=== PATIENT | female | born 1990 | race Caucasian/White ===

== ENCOUNTER 2018-10-27 11:14 | Observation (INO) | payer OTHER ==
[2018-10-27 11:52] LABS: Appearance,Urine Clear (Clear); Bilirubin,Urine Negative (Negative); Blood,Urine Negative (Negative); Color,Urine Light Yellow; Glucose,Urine (UA) Negative (Negative); Ketones,Urine Negative (Negative); Leukocyte Esterase,Urine Negative (Negative); Nitrite,Urine Negative (Negative); Protein,Urine Negative (Negative); Specific Gravity,Urine 1.006 (1.001-1.035); Urobilinogen,Urine <2.0 mg/dL (<2.0)
[2018-10-27 11:56] LABS: Basophils % (A) 0 %; Eosinophils # (A) 0.1 k/uL (0-0.7); Eosinophils % (A) 0 %; HGB 12.8 gm/dL (11.4-16.0); Lymphocytes # (A) 1.8 k/uL (1.0-4.8); Lymphocytes % (A) 16 %; MCH 29.9 pg (25.0-35.0); MCHC 34.5 g/dL (31.0-37.0); MCV 86.9 fL (80.0-100.0); Mean Platelet Volume 8.2; Monocytes # (A) 0.5 k/uL (0-1.0); Monocytes % (A) 4 %; Neutrophils # (A) 8.5 k/uL (1.3-7.7); Neutrophils % (A) 76 %; Platelet Count 160 k/uL (150-450); RBC 4.26 m/uL (3.80-5.40); RDW 13.5 % (11.5-15.5); WBC 11.2 k/uL (3.8-10.6)
[2018-10-27 12:09] LABS: ALT 39 U/L (9-52); AST 43 U/L (14-36); Blood Urea Nitrogen 6 mg/dL (7-17); LDH 594 U/L (313-618); Uric Acid 5.5 mg/dL (3.7-7.4)
--- NOTE | 2018-10-27 12:27 | US ---
EXAMINATION TYPE: US OB BPP wo non-stress DATE OF EXAM: 10/27/2018 COMPARISON: NONE CLINICAL HISTORY: PIH. HTN, weight gain EXAM PERFORMED: Transabdominal (TA) BPP PARAMETERS: PRESENTATION: Vertex LIE: Longitudinal?? HEART RATE: 136 bpm RHYTHM: Normal LATRICE: 13.6cm DIAPHRAGM IMAGED: yes BPP SCORIN. Breathin (1 episode of breathing of 30 second duration in 30 minutes of scanning time) 2. Movement: 2 (at least 3 discrete body movements in 30 minutes) 3. Tone: 2 (1 episode of active flexion/extension of limb) 4. LATRICE: 2 (LATRICE index > 5cm) TOTAL SCORE: 8 / 8 Biophysical profile scored normal range during real-time scanning.
[2018-10-27 15:47] VITALS: BMI 36.5
--- NOTE | 2018-10-27 16:40 | P.HPOB ---
History of Present Illness H&P Date: 10/27/18 Chief Complaint: Intrauterine 35 weeks: Elevated blood pressures Selene is a 28-year-old G3 1 P0 at 35 weeks gestation who was seen in the office and was noted to have elevated blood pressure. Her blood pressure initially in the office was 146/86 so she was sent to labor and delivery for evaluation. It is noted in labor and delivery she's had a number of mildly elevated blood pressures anywhere from 150/80-140/70 however, at this time her blood pressures are 130s over 70s. She has no headache no epigastric pain and no visual changes however. She does have some peripheral and central edema approximately +1 she does feel slightly more bloated then she had. Lab studies were ordered and she is noted to have normal platelet count, however her AST is minimally elevated at 43 and her LDH is high normal at 593. I am concerned that she may have early signs of preeclampsia and as such we are going to keep her tonight and run a 24-hour urine for protein and repeat her blood work tomorrow to verify stability and/or hopefully decrease of her liver enzyme and LDH. As she is only 30 weeks and this appears at this time to be mild preeclampsia there is no specific recommendation for delivery, however very close observation and follow-up will be required if she is able to go home. At this time all questions answered for her and we did have a lengthy discussion on risks of preeclampsia and our concerns especially as it relates to timing of delivery as she is only 35 weeks. Physical exam: Vital signs are currently stable and she is afebrile. Heart regular, lungs clear, extremities are without pain but do show +1 edema and +2/ 3 out of 4 deep tendon reflexes without clonus. heart tones show a category 1 tracing with heart rate in the 140s. Assessment gestational hypertension versus early preeclampsia Plan very close observation with serial blood pressures and repeat of labs tomorrow. We'll also continue with neuro checks and make decisions for further care based on tomorrow's labs and how she feels tonight and whether or not there is any change to her symptomatology. Past Medical History Past Medical History: No Reported History History of Any Multi-Drug Resistant Organisms: None Reported Past Surgical History: No Surgical Hx Reported Past Anesthesia/Blood Transfusion Reactions: No Reported Reaction Past Psychological History: No Psychological Hx Reported Smoking Status: Never smoker Past Alcohol Use History: None Reported Past Drug Use History: None Reported - Past Family History Father Family Medical History: No Reported History Medications and Allergies Allergies Allergy/AdvReac Type Severity Reaction Status Date / Time No Known Allergies Allergy Verified 10/27/18 11:20 Exam Osteopathic Statement: *. No significant issues noted on an osteopathic structural exam other than those noted in the History and Physical/Consult. Vital Signs Resp BP 10/27/18 15:41 14 153/79 Intake and Output 10/27/18 10/27/18 10/27/18 06:59 14:59 22:59 Other: Weight 93.44 kg 93.44 kg Results Result Diagrams: 10/27/18 11:37 10/27/18 11:37 Abnormal Lab Results - Last 24 Hours (Table) 10/27/18 10/27/18 10/27/18 Range/Units 11:35 11:37 11:37 WBC 11.2 H (3.8-10.6) k/uL Neutrophils # 8.5 H (1.3-7.7) k/uL BUN 6 L (7-17) mg/dL Creatinine 0.49 L (0.52-1.04) mg/dL AST 43 H (14-36) U/L U Random Total Protein 25 H (<12) mg/dL
[2018-10-28 08:45] VITALS: RESP 14
--- NOTE | 2018-10-28 09:54 | P.PN ---
Progress Note - Text Progress Note Date: 10/28/18 Selene is seen and evaluated. At this time she voices no complaints. Her vital signs remain with mildly elevated blood pressures in the 140/70-80 range, however she has no signs or symptoms of severe preeclampsia. She denies headache, no epigastric pain, and no visual changes. Her peripheral edema today appears less. She is voiding without difficulty she relates. A 24-hour urine is pending. Deep tendon reflexes remaining normal to very slightly brisk but there is no clonus. Heart regular, lungs clear, extremities without pain with minimal edema this morning. Assessment intrauterine with suspected mild/early preeclampsia Plan continue observational care at this time with 24 urine pending. Also we will await repeat lab studies. Should her repeat labs show an abnormal increase she will likely need to be delivered in the near future. Should they be stable or decreased will likely discharge her to home with appointment on Saturday for blood pressure check and NST. All this was discussed with patient in detail and all questions are answered for her at this time.
[2018-10-28 12:31] LABS: Basophils % (A) 0 %; Eosinophils # (A) 0.1 k/uL (0-0.7); Eosinophils % (A) 1 %; HCT 37.5 % (34.0-46.0); HGB 12.8 gm/dL (11.4-16.0); Lymphocytes # (A) 1.5 k/uL (1.0-4.8); Lymphocytes % (A) 16 %; MCH 29.9 pg (25.0-35.0); MCV 87.7 fL (80.0-100.0); Mean Platelet Volume 8.2; Monocytes # (A) 0.3 k/uL (0-1.0); Monocytes % (A) 4 %; Neutrophils # (A) 7.4 k/uL (1.3-7.7); Neutrophils % (A) 78 %; Platelet Count 164 k/uL (150-450); RBC 4.28 m/uL (3.80-5.40); RDW 13.7 % (11.5-15.5); WBC 9.5 k/uL (3.8-10.6)
[2018-10-28 12:42] VITALS: TEMP 97.3
[2018-10-28 12:50] LABS: ALT 42 U/L (9-52); AST 40 U/L (14-36); Blood Urea Nitrogen 6 mg/dL (7-17); LDH 569 U/L (313-618); Uric Acid 5.9 mg/dL (3.7-7.4)
[2018-10-28 16:42] VITALS: BP 140/78; PULSE 77
--- NOTE | 2018-10-28 18:45 | P.DS ---
Providers Date of admission: 10/27/18 15:06 Expected date of discharge: 10/28/18 Attending physician: Balwinder Garrido Primary care physician: Stated None - Discharge Diagnosis(es) (1) Mild pre-eclampsia Current Visit: Yes Status: Acute Hospital Course: Patient presented with increased blood pressures yesterday. She denies headache , nausea, vomiting, chest pain, shortness of breath or calf pain or right upper quadrant pain. Her blood pressures ranged from 126-156/69-83. She was kept for 24 urine protein. The 24 urine protein came at 882 mg. I discussed the case with MFM from [facility]. They advised that she does have mild preeclampsia and the plan should be to move towards delivery at 37 weeks. In the meantime she'll come to the office twice a week for NST and blood pressure check, and have weekly labs. If the patient starts to have symptoms of preeclampsia or any of these are abnormal she should be delivered, otherwise she should be delivered at 37 weeks. Plan - Discharge Summary Follow up Appointment(s)/Referral(s): Balwinder Garrido DO [Doctor of Osteopathic Medicine] - 10/31/18 Discharge Disposition: HOME SELF-CARE
== END 2018-10-28 19:02 | disposition home or self-care (01) ==
LOC: FBPOP 11:14 → 4FBP 14:57 → UNDOADMIN 14:57 → 4FBP 15:06
PROVIDERS: ADMIT Obstetrics & Gynecology; ATTEND Obstetrics & Gynecology
DX: O14.03 Mild to moderate pre-eclampsia, third trimester (principal); Z3A.35 35 weeks gestation of pregnancy
CPT/HCPCS: 59025; 84156 ×2; 81050; 82565 ×2; 83615 ×2; 84450 ×2; 84460 ×2; 84520 ×2; 84550 ×2; 85025 ×2; 81003; 76819; G0463; G0378 ×2; 99215

== ENCOUNTER 2018-10-29 10:08 | Outpatient (CLI) | payer OTHER ==
[2018-10-29 11:14] LABS: Appearance,Urine Cloudy (Clear); Bacteria,Urine Rare /hpf; Bilirubin,Urine Negative (Negative); Blood,Urine Negative (Negative); Color,Urine Yellow; Glucose,Urine (UA) Negative (Negative); Ketones,Urine Negative (Negative); Leukocyte Esterase,Urine Negative (Negative); Mucus,Urine Rare /hpf; Nitrite,Urine Negative (Negative); PH, Urine 6.5 (5.0-8.0); Protein,Urine 2+ (Negative); RBC,Urine 1 /hpf (0-5); Specific Gravity,Urine 1.016 (1.001-1.035); Squamous Epithelial Cell,Urine 24 /hpf (0-4); Urobilinogen,Urine <2.0 mg/dL (<2.0); WBC,Urine 5 /hpf (0-5)
[2018-10-29 11:33] VITALS: BP 144/93; PULSE 91; RESP 16; TEMP 97.6
--- NOTE | 2018-10-29 13:21 | P.MSEPDOC ---
Presenting Problems - Arrival Data Date of Arrival on Unit: 10/29/18 Time of Arrival on Unit: 10:00 Mode of Transport: Ambulatory - Complaint OB-Reason for Admission/Chief Complaint: PIH Medical History - Information : 1 Para: 0 Term: 0 : 0 Abortions: Spontaneous or Elective: 0 Number of Living Children: 0 - Gestational Age Gestational Age by JANKI (wks/days): 35 Weeks and 6 Days - History Complications: Preeclampsia Review of Systems - Review of Systems Constitutional: No problems Breast: No problems ENT: No problems Cardiovascular: No problems Respiratory: No problems Gastrointestinal: No problems Genitourinary: No problems Musculoskeletal: No problems Neurological: No problems Skin: No problems Vital Signs - Temperature Temperature: 97.6 F Temperature Source: Temporal Artery Scan - Pulse Right Sitting Pulse Rate: 91 Pulse Assessment Method: Automatic Cuff - Respirations Respiratory Rate: 16 Oxygen Delivery Method: Room Air - Blood Pressure Right Arm Blood Pressure: 144/93 Blood Pressure Mean: 110 Blood Pressure Source: Automatic Cuff Medical Screen Scoring (Pre) - Cervical Exam Dilation: 0 cm = 0 Membranes: Intact - Uterine Contractions Frequency: < 36 weeks = 6 Duration: > 40 seconds = 2 - Maternal Vital Signs Maternal Temperature: N/A Maternal Blood Pressure: Systolic >139 = 2 Signs of Preeclampsia: Nausea/Vomiting = 1, Edema of Face = 4 - Pain Assessment Pain Intensity: 0 Pain Behavior: None Exhibited - Total Score Total Score (Pre): 15 - Level of Risk Level of Risk: High (10+) Physician Notification (Pre) - Physician Notified Physician Notified Date: 10/29/18 Physician Notified Time: 11:20 Physician/Practitioner Notifed:: Radhika New Order Received: No Disposition - Disposition Discharge Date: 10/29/18 Discharge Time: 12:35 I agree with the RN Medical Screening Exam: Yes Risk & Benefit of care provided described in d/c instruction: Yes Diagnosis: GESTATIONAL HTN W/O SIGNIFICANT PROTEINURIA, THIRD TRIMESTER
== END 2018-10-29 10:35 | disposition home or self-care (01) ==
LOC: FBPOP 10:08
PROVIDERS: ATTEND Obstetrics & Gynecology
DX: O13.3 Gestational [pregnancy-induced] hypertension without significant proteinuria, third trimester (principal); Z3A.35 35 weeks gestation of pregnancy
CPT/HCPCS: 59025; 81001; G0463; 99213

== ENCOUNTER 2018-10-31 12:09 | Inpatient (IN) | payer OTHER ==
[2018-10-31 12:30] LABS: Basophils % (A) 0 %; Eosinophils # (A) 0.1 k/uL (0-0.7); Eosinophils % (A) 1 %; HCT 38.2 % (34.0-46.0); HGB 12.6 gm/dL (11.4-16.0); Lymphocytes # (A) 1.9 k/uL (1.0-4.8); Lymphocytes % (A) 17 %; MCH 28.7 pg (25.0-35.0); MCHC 32.9 g/dL (31.0-37.0); MCV 87.3 fL (80.0-100.0); Mean Platelet Volume 7.6; Monocytes # (A) 0.5 k/uL (0-1.0); Monocytes % (A) 5 %; Neutrophils # (A) 8.1 k/uL (1.3-7.7); Neutrophils % (A) 75 %; Platelet Count 190 k/uL (150-450); RBC 4.37 m/uL (3.80-5.40); RDW 13.6 % (11.5-15.5); WBC 10.8 k/uL (3.8-10.6)
[2018-10-31 12:47] LABS: ALT 43 U/L (9-52); AST 44 U/L (14-36); Blood Urea Nitrogen 8 mg/dL (7-17); LDH 709 U/L (313-618); Uric Acid 6.1 mg/dL (3.7-7.4)
[2018-10-31 12:55] LABS: Appearance,Urine Cloudy (Clear); Bacteria,Urine Rare /hpf; Bilirubin,Urine Negative (Negative); Blood,Urine Small (Negative); Color,Urine Yellow; Glucose,Urine (UA) Negative (Negative); Ketones,Urine Negative (Negative); Leukocyte Esterase,Urine Trace (Negative); Mucus,Urine Moderate /hpf; Nitrite,Urine Negative (Negative); PH, Urine 6.5 (5.0-8.0); Protein,Urine 2+ (Negative); RBC,Urine 6 /hpf (0-5); Specific Gravity,Urine 1.021 (1.001-1.035); Squamous Epithelial Cell,Urine 25 /hpf (0-4); Urobilinogen,Urine <2.0 mg/dL (<2.0); WBC,Urine 7 /hpf (0-5)
[2018-10-31] MEDS ORDERED: DINOPROSTONE 10 MG INSERT.ER VAGINAL ONE (13:25)
[2018-10-31] MEDS ORDERED: BUTORPHANOL 1 MG/ML 1 ML VIAL IV PRN (13:25)
[2018-10-31] MEDS ORDERED: AMPICILLIN 2,000 MG in SODIUM CHLORIDE 0.9% 100 ML IVPB STA (13:27)
[2018-10-31] MEDS: LACTATED RINGERS 1,000 ML IV SCH ×2 (13:41→20:39)
[2018-10-31] MEDS: BETAMET ACET-BETAMETH SOD PHOS 6 MG/ML VIAL IM SCH (13:43)
[2018-10-31 14:29] VITALS: BMI 36.3
--- NOTE | 2018-10-31 17:28 | HP ---
HISTORY AND PHYSICAL PRINCIPAL DIAGNOSIS: Intrauterine at 36 weeks with pre-eclampsia. The patient was seen and evaluated today in the office and was basically asymptomatic but has had elevated LDH and liver enzymes prior to today. Therefore she was sent for repeat labs per [facility] recommendation. Today her LDH is elevated even further to over 700, and while her AST and ALT are only slightly elevated, they are slightly elevated. She has, however, no headache, no epigastric pain, and no visual changes. It does not really look like she has HELLP, but as her labs including the LDH and protein/creatinine ratio are more indicative of advancing mild pre-eclampsia, we are opting to induce her with cervical ripening tonight and induction in a.m. Other pertinent labs do include A-positive blood type. Rh antibody was negative. Rubella is immune. Hepatitis B surface antigen as well as RPR were negative. Group B strep, however, is unknown, as it was only done a couple of days ago. She does have a history of thyroid disease and takes thyroid medication, as she had a prior thyroidectomy. PHYSICAL EXAMINATION: Her vital signs do show mild elevation of blood pressure 148/70. Otherwise stable. HEART: Regular. LUNGS: Clear. EXTREMITIES: Without pain. A category 1 tracing is noted and she is having some irregular contractions. She was dilated to 1 cm, 60% effaced, minus 3 station. As the goal is to try and have her in labor a short amount of time, we will plan cervical ripening to hopefully get her cervix more favorable prior to induction tomorrow. We did have a lengthy discussion about plans, should her blood pressures change or should she begin having elevation in her blood pressures and/or signs or symptoms of pre-eclampsia, including headache or epigastric pain or visual changes. The plan will be at that point to likely discontinue induction and move forward with a primary section. At this time we are not starting magnesium sulfate, as she has no other symptoms. However, she is aware that this may also need to be initiated at a moment's notice if she begins to have symptoms. She also may end up having that started if her blood pressures continue to remain elevated into the induction timeframe. All questions were answered for her at this time. She is in agreement with the current treatment plan, and we will make every effort to try and get her delivered vaginally. However, as previously noted, should her condition change, she may end up needing a section. MMODL / IJN: [id number] /
[2018-11-01] MEDS: BETAMET ACET-BETAMETH SOD PHOS 6 MG/ML VIAL IM SCH (01:43)
[2018-11-01] MEDS: LACTATED RINGERS 1,000 ML IV SCH ×5 (04:27→22:57)
[2018-11-01] MEDS ORDERED: TERBUTALINE 1 MG/ML VIAL SQ PRN (06:02)
[2018-11-01] MEDS ORDERED: OXYTOCIN 10 UNIT/ML 1 ML VIAL IM PRN (06:02)
[2018-11-01] MEDS ORDERED: CARBOPROST TROMETHAMINE 250 MCG/ML 1 ML AMP IM PRN (06:02)
[2018-11-01] MEDS ORDERED: LIDOCAINE 0.5% (PF) 5 MG/ML (50 ML SDV) SQ PRN (06:02)
[2018-11-01] MEDS ORDERED: METHYLERGONOVINE 0.2 MG/ML 1 ML AMP IM PRN (06:02)
[2018-11-01] MEDS ORDERED: OXYTOCIN 20 UNITS/1000 ML NS 1,000 ML IV SCH (06:15)
[2018-11-01] MEDS: AMPICILLIN 1,000 MG in SODIUM CHLORIDE 0.9% 50 ML IVPB SCH ×3 (06:15→21:37)
[2018-11-01] MEDS ORDERED: BUTORPHANOL 1 MG/ML 1 ML VIAL IV PRN (10:33)
[2018-11-01] MEDS ORDERED: fentaNYL (PF) 50 MCG/ML 5 ML AMP ONE (13:00)
[2018-11-01] MEDS ORDERED: SODIUM CHLORIDE 0.9% 100 ML BAG ONE (13:00)
[2018-11-01] MEDS ORDERED: ROPIVACAINE 5MG/ML 20ML VIAL ONE (13:00)
--- NOTE | 2018-11-01 18:46 | DN ---
DELIVERY SUMMARY The patient progressed to complete and pushing with spontaneous vaginal delivery of a viable male over a second-degree midline laceration. Following delivery of the head, a nuchal cord x2 was noted and easily reduced. The anterior and posterior shoulders were then easily delivered followed by the remainder of the baby. Mouth and nares were then bulb suctioned. The baby was placed on mother's abdomen where the umbilical cord was allowed to pulsate for 1 minute prior to clamping and cutting. Once this was accomplished, nursery personnel was present and assumed care. Placenta was then delivered intact and Pitocin was added to the IV. The midline laceration was then repaired with 3-0 Vicryl followed by 1% Xylocaine for analgesia in normal fashion. Both mother and baby were stable following delivery. scores and weight are pending at this time. MMODL / IJN: [id number] /
[2018-11-01] MEDS ORDERED: ACETAMINOPHEN TAB 325 MG TAB PO PRN (21:33)
[2018-11-01] MEDS ORDERED: HYDROCORTISONE 2.5% RECTAL CREAM 30 GM TUBE RECTAL PRN (21:33)
[2018-11-01] MEDS ORDERED: WITCH HAZEL 1 EACH MED..PAD TOPICAL PRN (21:33)
[2018-11-01] MEDS ORDERED: diphenhydrAMINE 25 MG CAP PO PRN (21:33)
[2018-11-01] MEDS ORDERED: SIMETHICONE 80 MG CHEWABLE PO PRN (21:33)
[2018-11-01] MEDS ORDERED: LANOLIN CREAM 5 GM TUBE TOPICAL PRN (21:33)
[2018-11-01] MEDS ORDERED: ZOLPIDEM 5 MG TAB PO PRN (21:33)
[2018-11-01] MEDS ORDERED: diphenhydrAMINE 50 MG CAP PO PRN (21:33)
[2018-11-01] MEDS ORDERED: diphenhydrAMINE 50 MG/ML 1 ML VIAL IVP PRN ×2 (21:33)
[2018-11-01] MEDS ORDERED: ONDANSETRON 4 MG/2 ML VIAL IVP PRN (21:34)
[2018-11-02] MEDS: SENNOSIDES-DOCUSATE SODIUM 1 EACH TAB PO SCH ×2 (07:49→22:53)
--- NOTE | 2018-11-02 09:46 | P.PNOBGVD ---
Subjective - Subjective Principal diagnosis: day1 Interval history: Overall Selene is doing well. Vital signs are stable with recent blood pressure 122/70. She did have elevated temperatures yesterday, however this morning her temperature is 99.2. She is ambulating, voiding and tolerating her diet. At this time other than some mild vaginal tenderness she voices no complaints. Patient reports: Reports appetite normal, Reports voiding normally, Reports pain well controlled, Reports ambulating normally : doing well Objective - Latest Vital Signs Latest vital signs: Vital Signs Temp Pulse Resp BP Pulse Ox 11/02/18 07:45 99.2 F 83 16 128/75 11/02/18 04:00 99 F 90 15 131/76 98 11/02/18 00:00 99.4 F 92 15 129/78 Intake and Output 11/01/18 11/02/18 11/02/18 22:59 06:59 14:59 Other: # Voids 1 - Exam Lungs: bilateral: normal Chest: Normal S1, Normal S2 Extremities: Present: normal Abdomen: Present: normal appearance, soft Uterus: Present: normal, firm
[2018-11-02] MEDS: IBUPROFEN 600 MG TAB PO PRN (14:31)
--- NOTE | 2018-11-03 07:51 | P.PNOBGVD ---
Subjective - Subjective Principal diagnosis: day 2 Interval history: Overall care is doing very well. She's angling, voiding and she is tolerating her diet. I didn't see her yesterday in rounding but there were issues with computer system yesterday. She voices no complaints this morning and at this time she is stable for discharge. We'll plan discharged home today and she'll follow up with me in 5 days for at least a blood pressure check in the office and then again at 6 weeks. She is very well aware that should she have any severe headaches epigastric pain or visual changes or other signs and symptoms of preeclampsia she is to report back to the emergency room and otherwise all questions are answered for her at this time. On physical exam her vital signs are stable with excellent blood pressures following delivery. Heart regular, lungs clear, extremities without pain. Abdomen is soft and nontender with a firm uterus and light lochia. Assessment day 2 with history of preeclampsia. Plan as above. Prescription for Motrin and breast pump provided. Patient reports: Reports appetite normal, Reports voiding normally, Reports pain well controlled, Reports ambulating normally : doing well Objective - Latest Vital Signs Latest vital signs: Vital Signs Temp Pulse Resp BP 11/03/18 00:00 98 F 72 15 140/77 11/02/18 16:11 72 136/80 11/02/18 16:00 99.2 F 69 16 144/81 11/02/18 12:00 98.8 F
[2018-11-03] MEDS: IBUPROFEN 600 MG TAB PO PRN (09:06)
[2018-11-03] MEDS: SENNOSIDES-DOCUSATE SODIUM 1 EACH TAB PO SCH (09:07)
[2018-11-03 09:12] VITALS: BP 141/78; PULSE 80; RESP 18; TEMP 98.4
--- NOTE | 2018-11-05 16:16 | P.DS ---
Providers Date of admission: 10/31/18 13:28 Expected date of discharge: 11/05/18 Attending physician: Balwinder Garrido Primary care physician: Stated None Hospital Course: Care was discharged home day 2. She was and bleeding, voiding and she was tolerating her diet. Her blood pressures had remained minimally elevated in the 140/90 range. No medications indicated in this situation but will have her follow up with me later this week and then again next week for blood pressure checks. She is acutely aware of instructions or ports emergency room for any severe headache, heavy bleeding, visual changes or epigastric pain or any high temperatures. Signs and symptoms preeclampsia were discussed on multiple occasions and she is aware to watch THESE and again report to the emergency room. Otherwise her vital signs are stable and afebrile. Heart was regular, lungs were clear abdomen was soft with firm uterus below the umbilicus. Extremities were without pain and showed 1+ pitting edema. Prescription for Motrin was provided. Again she will follow me later this week for blood pressure check. All other questions are answered for the discharge instructions were thoroughly reviewed. He is stable for discharge this time. Plan - Discharge Summary New Discharge Prescriptions: New Ibuprofen [Motrin] 600 mg PO Q6HR PRN #30 tab PRN Reason: Pain No Action RX: Levothyroxine Sodium 1 tab PO DAILY RX: Omeprazole [PriLOSEC] 1 tab PO DAILY Pnv No.95/Ferrous Fum/Folic AC [ Multivitamin Tablet] 1 tab PO DAILY Discharge Medication List Pnv No.95/Ferrous Fum/Folic AC [ Multivitamin Tablet] 1 tab PO DAILY [History] RX: Levothyroxine Sodium 1 tab PO DAILY 10/29/18 [History] RX: Omeprazole [PriLOSEC] 1 tab PO DAILY 10/29/18 [History] Ibuprofen [Motrin] 600 mg PO Q6HR PRN #30 tab 11/03/18 [Rx] Follow up Appointment(s)/Referral(s): Balwinder Garrido DO [Doctor of Osteopathic Medicine] - 11/07/18 Activity/Diet/Wound Care/Special Instructions: No heavy lifting, limit stairs and driving, and pelvic rest. If any high temperatures, heavy bleeding, or severe pain call my office Discharge Disposition: HOME SELF-CARE
== END 2018-11-03 12:48 | disposition home or self-care (01) | DRG 807 ==
LOC: FBPOP 12:09 → 4FBP 13:28
PROVIDERS: ADMIT Obstetrics & Gynecology; ATTEND Obstetrics & Gynecology
PROC: 3E0P7VZ Introduction of Hormone into Female Reproductive, Via Natural or Artificial Opening (ICD-10-PCS; 2018-10-31)
PROC: 10E0XZZ Delivery of Products of Conception, External Approach (ICD-10-PCS; principal; 2018-11-01)
PROC: 0KQM0ZZ Repair Perineum Muscle, Open Approach (ICD-10-PCS; 2018-11-01)
PROC: 3E033VJ Introduction of Other Hormone into Peripheral Vein, Percutaneous Approach (ICD-10-PCS; 2018-11-01)
PROC: 00HU33Z Insertion of Infusion Device into Spinal Canal, Percutaneous Approach (ICD-10-PCS; 2018-11-01)
PROC: 3E0R3BZ Introduction of Anesthetic Agent into Spinal Canal, Percutaneous Approach (ICD-10-PCS; 2018-11-01)
DX: O14.04 Mild to moderate pre-eclampsia, complicating childbirth (principal); Z37.0 Single live birth; O69.81X0 Labor and delivery complicated by cord around neck, without compression, not applicable or unspecified; O70.1 Second degree perineal laceration during delivery; E89.0 Postprocedural hypothyroidism; O99.62 Diseases of the digestive system complicating childbirth; K21.9 Gastro-esophageal reflux disease without esophagitis; Z3A.36 36 weeks gestation of pregnancy
CPT/HCPCS: 59025; 81001; 82565; 82570; 83615; 84156; 84450; 84460; 84520; 84550; 85025; 86850; 86900; 86901; 88307

== ENCOUNTER → 2020-10-13 | Outpatient (CLI) | payer OTHER ==
[2020-10-13 20:56] LABS: T4, Free (Free Thyroxine) 1.7 ng/dL (0.80-1.80)
== END | disposition home or self-care (01) ==
LOC: LABWHC1 12:43
PROVIDERS: ATTEND Family Medicine
DX: E03.9 Hypothyroidism, unspecified (principal)
CPT/HCPCS: 36415; 84439; 84443; 84481

== ENCOUNTER 2021-12-24 05:57 | Inpatient (IN) | payer OTHER ==
--- NOTE | 2021-12-23 07:58 | P.HPOB ---
History of Present Illness H&P Date: 12/23/21 Chief Complaint: Gestational hypertension This patient is a pleasant 31-year-old 2 para 1 female estimated date of confinement 01/14/2022 estimated gestational age 37-0/7 weeks gestation who is admitted to labor and delivery for induction of labor secondary to gestational hypertension. Patient's history is such that she was induced with her first at 36 weeks for severe preeclampsia. Patient seen maternal medicine and also on baby aspirin. Initial care is per Dr. Vann however I resumed this care at approximately 30 weeks. Patient's had weekly preeclampsia labs that were normal but has had persistent blood pressure elevations a last 2 weeks of 140s over 80s. Per current recommendations plan is to proceed with delivery. care is also complicated by an abnormal quad screen for which she was referred to maternal- medicine and had a negative evaluation including an amniocentesis. She's been followed with growth ultrasounds and nonstress testing including biophysical profiles. Review of Systems Genitourinary: Reports Menstruation: Reports amenorrhea Past Medical History Past Medical History: GERD/Reflux, Thyroid Disorder Additional Past Medical History / Comment(s): thyroidectomy, age 14; patient has Cervidil induction for her first for severe preeclampsia at 36 weeks. History of Any Multi-Drug Resistant Organisms: None Reported Past Surgical History: No Surgical Hx Reported Additional Past Surgical History / Comment(s): thyroidectomy Past Anesthesia/Blood Transfusion Reactions: No Reported Reaction Past Psychological History: Anxiety, Depression Additional Psychological History / Comment(s): OCD Smoking Status: Never smoker Past Alcohol Use History: None Reported Past Drug Use History: None Reported - Past Family History Father Family Medical History: No Reported History Medications and Allergies Home Medications Medication Instructions Recorded Confirmed Type Levothyroxine Sodium 1 tab PO DAILY 10/29/18 10/31/18 History Omeprazole [PriLOSEC] 1 tab PO DAILY 10/29/18 10/31/18 History Pnv No.95/Ferrous Fum/Folic AC 1 tab PO DAILY 10/29/18 10/31/18 History [ Multivitamin Tablet] Ibuprofen [Motrin] 600 mg PO Q6HR PRN #30 tab 11/03/18 Rx Allergies Allergy/AdvReac Type Severity Reaction Status Date / Time No Known Allergies Allergy Verified 10/29/18 10:18 Exam - OBG Physical Exam Abdomen: bowel sounds normal, no diffuse tenderness, no bruit present, no guarding noted, no hepatomegaly, no splenomegaly, no mass Vulva: both: normal Vagina: normal moisture, no discharge Cervix: no lesion, no discharge Uterus: enlarged (Fundal height 38 cm) Results labs show she is A positive, rubella immune, RPR nonreactive, hepatitis B negative, HIV is nonreactive, ultrasounds have shown normal growth, group B strep was negative, quad screen was positive with a negative evaluation per maternal- medicine, patient did have an amniocentesis which showed 46 excess X,X Assessment and Plan Assessment: This is a pleasant 31-year-old 2 para 1 female 37-0/7 weeks gestation with gestational hypertension without preeclampsia at this time. Due to persistent blood pressure elevations above criteria recommendations are to proceed with delivery at this time. I've discussed this clinical condition with the patient and she understands and wishes to proceed. Plan is induction of labor and anticipate vaginal delivery. (1) 37 weeks gestation of Status: Acute Code(s): Z3A.37 - 37 WEEKS GESTATION OF SNOMED Code(s): 55191416 (2) Gestational hypertension Status: Acute Code(s): O13.9 - GESTATIONAL HTN W/O SIGNIFICANT PROTEINURIA, UNSP TRIMESTER SNOMED Code(s): 17620872 (3) Abnormal quad screen Status: Acute Code(s): O28.0 - ABNORMAL HEMATOLOG FINDING ON SCREENING OF MOTHER SNOMED Code(s): 593252043
[2021-12-24] MEDS ORDERED: LIDOCAINE 1% (PF) 10 MG/ML (30 ML SDV) SQ PRN (06:05)
[2021-12-24] MEDS ORDERED: OXYTOCIN 10 UNIT/ML 1 ML VIAL IM PRN (06:05)
[2021-12-24] MEDS ORDERED: OXYTOCIN 30 UNITS/500 ML NS 30 UNIT in SALINE 1 500ML.BAG IV SCH ×2 (06:05→14:15)
[2021-12-24] MEDS ORDERED: TERBUTALINE 1 MG/ML VIAL SQ PRN (06:05)
[2021-12-24] MEDS ORDERED: CARBOPROST TROMETHAMINE 250 MCG/ML 1 ML AMP IM PRN (06:05)
[2021-12-24] MEDS ORDERED: METHYLERGONOVINE 0.2 MG/ML 1 ML AMP IM PRN (06:05)
[2021-12-24 06:29] LABS: Basophils % (A) 0 %; Eosinophils # (A) 0.1 k/uL (0-0.7); Eosinophils % (A) 1 %; HCT 36.4 % (34.0-46.0); Lymphocytes # (A) 1.7 k/uL (1.0-4.8); Lymphocytes % (A) 18 %; MCH 29.9 pg (25.0-35.0); MCHC 33.1 g/dL (31.0-37.0); MCV 90.4 fL (80.0-100.0); Mean Platelet Volume 9.3; Monocytes # (A) 0.5 k/uL (0-1.0); Monocytes % (A) 5 %; Neutrophils # (A) 7.1 k/uL (1.3-7.7); Neutrophils % (A) 74 %; Platelet Count 149 k/uL (150-450); RBC 4.03 m/uL (3.80-5.40); RDW 13.7 % (11.5-15.5); WBC 9.6 k/uL (3.8-10.6)
[2021-12-24 06:39] LABS: Uric Acid 4.7 mg/dL (3.7-7.4)
[2021-12-24] MEDS: LACTATED RINGERS 1,000 ML IV SCH ×3 (06:46→10:43)
[2021-12-24] MEDS ORDERED: ONDANSETRON 4 MG/2 ML VIAL IVP PRN (07:54)
--- NOTE | 2021-12-24 08:00 | P.PN ---
Progress Note - Text Progress Note Date: 12/24/21 heart tones category 1. Patient is having some contractions overnight and her cervix this morning was 2-3 but thick possible early labor. Plan is to proceed with induction/augmentation of labor. Plan is anticipate vaginal delivery.
[2021-12-24] MEDS ORDERED: ROPIVACAINE 5MG/ML 20ML VIAL ONE (10:04)
[2021-12-24] MEDS ORDERED: SODIUM CHLORIDE 0.9% 100 ML BAG ONE (10:04)
[2021-12-24] MEDS ORDERED: fentaNYL (PF) 50 MCG/ML 5 ML AMP ONE (10:04)
[2021-12-24] MEDS ORDERED: ACETAMINOPHEN TAB 325 MG TAB PO PRN (14:08)
[2021-12-24] MEDS ORDERED: diphenhydrAMINE 25 MG CAP PO PRN (14:08)
[2021-12-24] MEDS ORDERED: LANOLIN CREAM 5 GM TUBE TOPICAL PRN (14:08)
[2021-12-24] MEDS ORDERED: ZOLPIDEM 5 MG TAB PO PRN (14:08)
[2021-12-24] MEDS ORDERED: SIMETHICONE 80 MG CHEWABLE PO PRN (14:08)
[2021-12-24] MEDS ORDERED: BENZOCAINE/MENTHOL SPRAY 1 GM/SPRAY AEROSOL TOPICAL PRN (14:08)
[2021-12-24] MEDS ORDERED: HYDROCORTISONE 2.5% RECTAL CREAM 30 GM TUBE RECTAL PRN (14:08)
[2021-12-24] MEDS ORDERED: diphenhydrAMINE 50 MG/ML 1 ML VIAL IVP PRN (14:08)
[2021-12-24] MEDS ORDERED: bisacodyL 10 MG SUPP RECTAL PRN (14:08)
--- NOTE | 2021-12-24 14:22 | P.PROBDLV ---
Vaginal Delivery Note - . Vaginal Delivery Note: Normal vaginal delivery viable female Apgars 3, 8, 9. At 1315 hrs. Please see dictated H&P for intimate details of this patient's admission. Brief summary this is a pleasant 31-year-old 2 para 1 female estimated gestational age 37 weeks who presents to labor and delivery for induction of labor secondary to gestational hypertension. Patient is admitted she is 2-3 cm dilated and having some contractions so perhaps early labor as well. She has artificial rupture membranes for clear fluid. Labor progresses and she does get an epidural for pain control. Patient quickly gets to complete pushes the head to the perineum. Posterior perineum was supported we have controlled delivery of the infant's head over the intact perineum. There is a loose nuchal cord and patient continues to push and delivers rest of this infant's body spontaneously. This is a viable female infant Apgars are 3, 8 and 9. does not have a vigorous cry and therefore the cord is doubly clamped and the baby's quickly taken over the warmer for the nursing personnel to attend. grossly appears normal. After delivery of the infant, I wait and approximately 20 minutes after delivery the placenta has not detached and she begins bleeding quite vigorously. At this time I feel the umbilical cord and it feels like there is membranous insertion on the placenta. Due to the vigorous bleeding, I advised the patient that we would need to remove the placenta manually. She does have a excellent epidural and adequate anesthesia therefore I reached a gloved hand into the uterus and the placenta is felt to be attached to the fundal portion. After 2 passes I may remove the placenta piecemeal. It is obvious this is a membranous cord insertion. A final pass with the gloved hand reveals no further tissue it is somewhat ratty at the top of the uterus but I feel all of the placenta has been removed. Patient is given one dose of Methergine (her blood pressure was normal) and some IV Pitocin and the uterus firms up well the bleeding subsides. Estimated blood loss approximately 500 mL. Quantitative blood loss is pending. There are no lacerations and no repair. Infant is taken to the nursery for observation possible admission and mother stable in her delivery room.
[2021-12-24 15:13] VITALS: RESP 16
[2021-12-24] MEDS: IBUPROFEN 600 MG TAB PO PRN (20:21)
[2021-12-24] MEDS: SENNOSIDES-DOCUSATE SODIUM 1 EACH TAB PO SCH (21:46)
--- NOTE | 2021-12-25 06:04 | P.PNOBGVD ---
Subjective - Subjective Patient reports: Reports appetite normal, Reports voiding normally, Reports pain well controlled, Reports ambulating normally : doing well Objective - Latest Vital Signs Latest vital signs: Vital Signs Temp Pulse Resp BP Pulse Ox 12/25/21 00:00 99.2 F 70 16 137/80 12/24/21 20:00 99.3 F 83 16 144/85 12/24/21 15:57 75 16 126/72 12/24/21 15:27 98.6 F 74 16 122/69 95 12/24/21 14:57 98.7 F 76 16 129/72 12/24/21 14:42 98.5 F 74 16 129/71 99 12/24/21 14:27 79 16 130/82 99 12/24/21 14:12 98.4 F 81 16 128/79 98 12/24/21 13:57 81 18 123/78 Intake and Output 12/24/21 12/24/21 12/25/21 14:59 22:59 06:59 Output Total 1041 Balance -1041 Output: Output, Quantitative 1041 Blood Loss Other: # Voids 1 3 - Exam Lungs: bilateral: normal Chest: Normal S1, Normal S2 Extremities: Present: normal Abdomen: Present: normal appearance, soft Uterus: Present: normal, firm - Labs Labs: Abnormal Lab Results - Last 24 Hours (Table) 12/24/21 12/24/21 Range/Units 06:15 06:15 Plt Count 149 L (150-450) k/uL AST 43 H (14-36) U/L Assessment and Plan Assessment: day #1. Patient is resting without complaints. Vital signs are stable. Uterus is firm nontender she's having normal lochia. CBC is pending. Discussed once again manual removal of the placenta and it appears that her bleeding is completely normal but I did discuss the next steps if she began having bleeding issues. This point we will continue to do routine care and check CBC. (1) 37 weeks gestation of Current Visit: No Status: Acute Code(s): Z3A.37 - 37 WEEKS GESTATION OF SNOMED Code(s): 19115425 (2) Gestational hypertension Current Visit: No Status: Acute Code(s): O13.9 - GESTATIONAL HTN W/O SIGNIFICANT PROTEINURIA, UNSP TRIMESTER SNOMED Code(s): 52883232 (3) Abnormal quad screen Current Visit: No Status: Acute Code(s): O28.0 - ABNORMAL HEMATOLOG FINDING ON SCREENING OF MOTHER SNOMED Code(s): 415767667
[2021-12-25 06:11] LABS: Basophils % (A) 0 %; Eosinophils # (A) 0.1 k/uL (0-0.7); Eosinophils % (A) 1 %; HCT 33.1 % (34.0-46.0); HGB 11.1 gm/dL (11.4-16.0); Lymphocytes # (A) 1.8 k/uL (1.0-4.8); Lymphocytes % (A) 18 %; MCH 30.5 pg (25.0-35.0); MCHC 33.6 g/dL (31.0-37.0); Mean Platelet Volume 10.5; Monocytes # (A) 0.5 k/uL (0-1.0); Monocytes % (A) 5 %; Neutrophils # (A) 7.1 k/uL (1.3-7.7); Neutrophils % (A) 74 %; Platelet Count 127 k/uL (150-450); RBC 3.64 m/uL (3.80-5.40); RDW 14.4 % (11.5-15.5); WBC 9.7 k/uL (3.8-10.6)
[2021-12-25] MEDS: SENNOSIDES-DOCUSATE SODIUM 1 EACH TAB PO SCH ×2 (07:51→21:11)
[2021-12-25] MEDS: IBUPROFEN 600 MG TAB PO PRN ×2 (10:08→18:03)
--- NOTE | 2021-12-26 05:55 | P.PNOBGVD ---
Subjective - Subjective Patient reports: Reports appetite normal, Reports voiding normally, Reports pain well controlled, Reports ambulating normally : doing well Objective - Latest Vital Signs Latest vital signs: Vital Signs Temp Pulse Resp BP Pulse Ox 12/26/21 00:00 98.1 F 72 16 123/77 96 12/25/21 16:00 98.6 F 74 16 126/69 98 12/25/21 08:00 98.0 F 69 16 137/78 Intake and Output 12/25/21 12/25/21 12/26/21 14:59 22:59 06:59 Intake Total 500 Balance 500 Intake: Oral 500 Other: # Voids 2 2 - Exam Lungs: bilateral: normal Chest: Normal S1, Normal S2 Extremities: Present: normal Abdomen: Present: normal appearance, soft Uterus: Present: normal, firm - Labs Labs: Abnormal Lab Results - Last 24 Hours (Table) 12/25/21 Range/Units 06:00 RBC 3.64 L (3.80-5.40) m/uL Hgb 11.1 L (11.4-16.0) gm/dL Hct 33.1 L (34.0-46.0) % Plt Count 127 L (150-450) k/uL Assessment and Plan Assessment: day #2. Patient is resting without complaints. Vital signs are stable she's afebrile and she is having normal lochia. CBC yesterday was good however platelets versus slightly less than normal therefore repeating that today on her liver function tests. Blood pressures are excellent. Patient does wish to go home and I feel that is loss or labs are reasonable she is certainly able to go home follow up with me as an outpatient. Plan today is to check blood work and continue routine care. (1) 37 weeks gestation of Current Visit: No Status: Acute Code(s): Z3A.37 - 37 WEEKS GESTATION OF SNOMED Code(s): 65290557 (2) Gestational hypertension Current Visit: No Status: Acute Code(s): O13.9 - GESTATIONAL HTN W/O SIGNIFICANT PROTEINURIA, UNSP TRIMESTER SNOMED Code(s): 77069367 (3) Abnormal quad screen Current Visit: No Status: Acute Code(s): O28.0 - ABNORMAL HEMATOLOG FINDING ON SCREENING OF MOTHER SNOMED Code(s): 554976293
--- NOTE | 2021-12-26 05:59 | P.DS ---
Providers Date of admission: 12/24/21 05:57 Expected date of discharge: 12/26/21 Attending physician: Abdullahi Garcia Primary care physician: Stated None - Discharge Diagnosis(es) (1) 37 weeks gestation of Current Visit: No Status: Acute (2) Gestational hypertension Current Visit: No Status: Acute (3) Abnormal quad screen Current Visit: No Status: Acute Hospital Course: Please see dictated H&P for intimate details of this patient's admission. Brief summary is a pleasant 31-year-old 2 para 1 female 37 weeks admitted to labor and delivery for induction of labor secondary to gestational hypertension. Patient is admitted she is uncomplicated induction of labor was on have a vaginal delivery viable female . Of note she did have membrane is insertion of the umbilical cord and retained placenta at the time of delivery. This required manual extraction of the placenta. Patient had normal lochia after delivery and repeat CBC is following day was good however platelets were slightly depressed. Blood pressures remained excellent. Patient's felt be stable for discharge home follow up with me in the office. Procedures: Induction of labor and normal vaginal delivery, manual extraction of the placenta Patient Condition at Discharge: Good Plan - Discharge Summary New Discharge Prescriptions: New Ibuprofen [Motrin] 600 mg PO Q6HR PRN #30 tab PRN Reason: Pain No Action Levothyroxine Sodium 1 tab PO DAILY Omeprazole [PriLOSEC] 1 tab PO DAILY Pnv No.95/Ferrous Fum/Folic AC [ Multivitamin Tablet] 1 tab PO DAILY Sertraline [Zoloft] 100 mg PO BID Discharge Medication List Levothyroxine Sodium 1 tab PO DAILY 10/29/18 [History] Omeprazole [PriLOSEC] 1 tab PO DAILY 10/29/18 [History] Pnv No.95/Ferrous Fum/Folic AC [ Multivitamin Tablet] 1 tab PO DAILY 10/29/18 [History] Sertraline [Zoloft] 100 mg PO BID 12/24/21 [History] Ibuprofen [Motrin] 600 mg PO Q6HR PRN #30 tab 12/26/21 [Rx] Follow up Appointment(s)/Referral(s): Abdullahi Garcia MD [STAFF PHYSICIAN] - 02/06/22 9:45 am Patient Instructions/Handouts: Vaginal Delivery (DC) Activity/Diet/Wound Care/Special Instructions: No intercourse or anything per vagina for 6 weeks. Please call if any fever, chills, excessive vaginal bleeding, and/or abdominal pain. Discharge Disposition: HOME SELF-CARE
[2021-12-26 06:11] LABS: Basophils % (A) 0 %; Eosinophils # (A) 0.1 k/uL (0-0.7); Eosinophils % (A) 1 %; HCT 32.3 % (34.0-46.0); HGB 10.9 gm/dL (11.4-16.0); Lymphocytes # (A) 1.9 k/uL (1.0-4.8); Lymphocytes % (A) 22 %; MCH 31.1 pg (25.0-35.0); MCHC 33.6 g/dL (31.0-37.0); MCV 92.6 fL (80.0-100.0); Mean Platelet Volume 8.6; Monocytes # (A) 0.4 k/uL (0-1.0); Monocytes % (A) 4 %; Neutrophils # (A) 6.3 k/uL (1.3-7.7); Neutrophils % (A) 71 %; Platelet Count 148 k/uL (150-450); RBC 3.49 m/uL (3.80-5.40); RDW 13.9 % (11.5-15.5); WBC 8.8 k/uL (3.8-10.6)
[2021-12-26 06:14] LABS: Albumin 2.6 g/dL (3.5-5.0); Bilirubin, Delta 0.1 mg/dL (0.0-0.2); Bilirubin,Unconjugated 0.2 mg/dL (0.0-1.1); Total Bilirubin 0.3 mg/dL (0.2-1.3); Total Protein 5.5 g/dL (6.3-8.2)
[2021-12-26 08:22] VITALS: BP 138/85; PULSE 75; TEMP 98
[2021-12-26] MEDS: SENNOSIDES-DOCUSATE SODIUM 1 EACH TAB PO SCH (08:22)
[2021-12-26] MEDS: IBUPROFEN 600 MG TAB PO PRN (10:41)
== END 2021-12-26 11:40 | disposition home or self-care (01) | DRG 807 ==
LOC: 4FBP 05:57
PROVIDERS: ADMIT Obstetrics & Gynecology; ATTEND Obstetrics & Gynecology
PROC: 10E0XZZ Delivery of Products of Conception, External Approach (ICD-10-PCS; principal; 2021-12-24)
PROC: 3E033VJ Introduction of Other Hormone into Peripheral Vein, Percutaneous Approach (ICD-10-PCS; 2021-12-24)
PROC: 10907ZC Drainage of Amniotic Fluid, Therapeutic from Products of Conception, Via Natural or Artificial Opening (ICD-10-PCS; 2021-12-24)
DX: O13.4 Gestational [pregnancy-induced] hypertension without significant proteinuria, complicating childbirth (principal); Z37.0 Single live birth; O99.284 Endocrine, nutritional and metabolic diseases complicating childbirth; O35.1XX0 Maternal care for (suspected) chromosomal abnormality in fetus, not applicable or unspecified; O43.123 Velamentous insertion of umbilical cord, third trimester; O69.81X0 Labor and delivery complicated by cord around neck, without compression, not applicable or unspecified; E89.0 Postprocedural hypothyroidism; O99.344 Other mental disorders complicating childbirth; O72.0 Third-stage hemorrhage; F32.A Depression, unspecified; K21.9 Gastro-esophageal reflux disease without esophagitis; O99.62 Diseases of the digestive system complicating childbirth; F41.9 Anxiety disorder, unspecified; F42.9 Obsessive-compulsive disorder, unspecified; Z3A.37 37 weeks gestation of pregnancy
CPT/HCPCS: 80076; 84450; 84460; 84550; 85025; 86850; 86900; 86901; 88307

== ENCOUNTER 2022-01-20 18:09 | Emergency (ER) | payer OTHER ==
[2022-01-20 18:36] VITALS: TEMP 99
[2022-01-20] MEDS ORDERED: SODIUM CHLORIDE 0.9% 1,000 ML IV ONE (18:52)
--- NOTE | 2022-01-20 19:00 | ED ---
General Adult HPI - General Chief complaint: Vaginal Bleeding Stated complaint: vaginal bleeding Time Seen by Provider: 01/20/22 18:37 Source: patient Mode of arrival: ambulatory Limitations: no limitations - History of Present Illness Initial comments: This 31-year-old female who had a vaginal delivery on 12/24/2021 presents emergency department with vaginal bleeding. Patient states yesterday she had her first episode of mild vaginal bleeding where she had a small amount of "trickling of blood" for about 30 minutes which resolved on its own. Patient states about one hour ago she began to experience vaginal bleeding again. Patient states when she stood up she instantly felt the blood in her underwear. Patient states the blood has been "trickling for the last hour." Patient states she did put medium-size pad in her underwear which she soaked through within 5 minutes. Patient states she did have hypertension with this and state s that they did have to manually going to remove the placenta after she had her daughter. Patient states this is her second vaginal delivery and states she did not have any of these consultations after her first , however she states she did have preeclampsia with her first . Patient states she does feel a little bit lightheaded that seems to come and go, however she denies any loss of consciousness, changes in vision, falls. Patient states she is experiencing some mild abdominal cramping which has been episodic since yesterday. Patient denies any chest pain, shortness of breath, nausea, vomiting, abdominal pain, changes in bowel or bladder, changes in vision, change in appetite. - Related Data Home Medications Medication Instructions Recorded Confirmed Omeprazole [PriLOSEC] 20 mg PO DAILY 10/29/18 01/20/22 Pnv No.95/Ferrous Fum/Folic AC 1 tab PO DAILY 10/29/18 01/20/22 [ Multivitamin Tablet] Levothyroxine Sodium [Synthroid] 137 mcg PO SUTUWETHFRSA 01/20/22 01/20/22 Levothyroxine Sodium [Synthroid] 274 mcg PO MO 01/20/22 01/20/22 Sertraline [Zoloft] 50 mg PO BID 01/20/22 01/20/22 Allergies Allergy/AdvReac Type Severity Reaction Status Date / Time No Known Allergies Allergy Verified 01/20/22 20:23 Review of Systems ROS Statement: Those systems with pertinent positive or pertinent negative responses have been documented in the HPI. ROS Other: All systems not noted in ROS Statement are negative. Past Medical History Past Medical History: GERD/Reflux, Thyroid Disorder Additional Past Medical History / Comment(s): thyroidectomy, age 14; patient has Cervidil induction for her first for severe preeclampsia at 36 weeks. History of Any Multi-Drug Resistant Organisms: None Reported Past Surgical History: No Surgical Hx Reported Additional Past Surgical History / Comment(s): thyroidectomy Past Anesthesia/Blood Transfusion Reactions: No Reported Reaction Past Psychological History: Anxiety, Depression Smoking Status: Never smoker Past Alcohol Use History: None Reported Past Drug Use History: None Reported - Past Family History Father Family Medical History: No Reported History General Exam Limitations: no limitations General appearance: alert, in no apparent distress Head exam: Present: atraumatic, normocephalic, normal inspection Eye exam: Present: normal appearance, PERRL, EOMI. Absent: scleral icterus, conjunctival injection, periorbital swelling Pupils: Present: normal accommodation ENT exam: Present: normal exam, mucous membranes moist Neck exam: Present: normal inspection, full ROM. Absent: tenderness, meningismus, lymphadenopathy Respiratory exam: Present: normal lung sounds bilaterally. Absent: respiratory distress, wheezes, rales, rhonchi, stridor Cardiovascular Exam: Present: regular rate, normal rhythm, normal heart sounds. Absent: systolic murmur, diastolic murmur, rubs, gallop, clicks GI/Abdominal exam: Present: soft, normal bowel sounds, other (Mild discomfort o lee suprapubic area to palpation). Absent: distended, tenderness, guarding, rebound, rigid External exam: Present: other (Blood clot present at external vaginal opening--- on reexamination, 30 minutes and one hour after presenting to ER, there is no active vaginal bleeding at this time.) Extremities exam: Present: normal inspection, full ROM, normal capillary refill. Absent: tenderness, pedal edema, joint swelling, calf tenderness Back exam: Present: normal inspection, full ROM. Absent: CVA tenderness (R), CVA tenderness (L), paraspinal tenderness, vertebral tenderness Neurological exam: Present: alert, oriented X3, CN II-XII intact Psychiatric exam: Present: normal affect, normal mood Skin exam: Present: warm, dry, intact, normal color. Absent: rash Course Vital Signs 01/20/22 01/20/22 18:34 20:16 Temperature 99 F Pulse Rate 85 68 Respiratory 20 18 Rate Blood Pressure 138/83 114/72 O2 Sat by Pulse 98 98 Oximetry Medical Decision Making - Medical Decision Making This 31-year-old female who had a vaginal delivery about one month ago presents to the emergency Department with vaginal bleeding 1 hour. Labs with WBC 5.2, hemoglobin 13.3, hematocrit 39.8, coagulations unremarkable, commission unremarkable. Transvaginal ultrasound impression: There is endometrial complex thickening that measures up to 2.7 cm in thickness that could relate to some blood clot. Endometritis is possible. No adnexal mass. Patient was requesting discharge and denied any abdominal or pelvic cramping. She denies any lighthe adedness, dizziness prior to discharge. I did speak with , the patient's SCHOOL PSYCHOLOGIST ASSISTANT and did review all labs and ultrasound results with him. He instructed me to discharge patient and have her follow-up with him at an appointment on Saturday morning at 10 AM. I did instruct patient to return if her symptoms did return as her bleeding did stop prior to discharge. Strict return precautions were discussed. Patient verbally agreed to plan. Patient sent home in stable condition. Case discussed in detail with my attending, Dr. Berrios - Lab Data Result diagrams: 01/20/22 19:09 01/20/22 19:09 Lab Results 01/20/22 01/20/22 01/20/22 Range/Units 19:06 19:09 19:09 WBC 5.2 (3.8-10.6) k/uL RBC 4.41 (3.80-5.40) m/uL Hgb 13.3 (11.4-16.0) gm/dL Hct 39.8 (34.0-46.0) % MCV 90.3 (80.0-100.0) fL MCH 30.1 (25.0-35.0) pg MCHC 33.4 (31.0-37.0) g/dL RDW 13.2 (11.5-15.5) % Plt Count 194 (150-450) k/uL MPV 7.1 Neutrophils % 57 % Lymphocytes % 36 % Monocytes % 4 % Eosinophils % 1 % Basophils % 0 % Neutrophils # 3.0 (1.3-7.7) k/uL Lymphocytes # 1.9 (1.0-4.8) k/uL Monocytes # 0.2 (0-1.0) k/uL Eosinophils # 0.1 (0-0.7) k/uL Basophils # 0.0 (0-0.2) k/uL PT 9.9 (9.0-12.0) sec INR 0.9 (<1.2) APTT 26.1 (22.0-30.0) sec Sodium (137-145) mmol/L Potassium (3.5-5.1) mmol/L Chloride (98-107) mmol/L Carbon Dioxide (22-30) mmol/L Anion Gap mmol/L BUN (7-17) mg/dL Creatinine (0.52-1.04) mg/dL Est GFR (CKD-EPI)AfAm (>60 ml/min/1.73 sqM) Est GFR (CKD-EPI)NonAf (>60 ml/min/1.73 sqM) Glucose (74-99) mg/dL Calcium (8.4-10.2) mg/dL Total Bilirubin (0.2-1.3) mg/dL AST (14-36) U/L ALT (4-34) U/L Alkaline Phosphatase (38-126) U/L Total Protein (6.3-8.2) g/dL Albumin (3.5-5.0) g/dL Blood Type A Positive Blood Type Recheck A Pos Bld Type Recheck Status No Antibody Screen NEGATIVE Spec Expiration Date 01/23/2022 - 230801/20/22 Range/Units 19:09 WBC (3.8-10.6) k/uL RBC (3.80-5.40) m/uL Hgb (11.4-16.0) gm/dL Hct (34.0-46.0) % MCV (80.0-100.0) fL MCH (25.0-35.0) pg MCHC (31.0-37.0) g/dL RDW (11.5-15.5) % Plt Count (150-450) k/uL MPV Neutrophils % % Lymphocytes % % Monocytes % % Eosinophils % % Basophils % % Neutrophils # (1.3-7.7) k/uL Lymphocytes # (1.0-4.8) k/uL Monocytes # (0-1.0) k/uL Eosinophils # (0-0.7) k/uL Basophils # (0-0.2) k/uL PT (9.0-12.0) sec INR (<1.2) APTT (22.0-30.0) sec Sodium 138 (137-145) mmol/L Potassium 3.6 (3.5-5.1) mmol/L Chloride 104 (98-107) mmol/L Carbon Dioxide 26 (22-30) mmol/L Anion Gap 8 mmol/L BUN 16 (7-17) mg/dL Creatinine 0.77 (0.52-1.04) mg/dL Est GFR (CKD-EPI)AfAm >90 (>60 ml/min/1.73 sqM) Est GFR (CKD-EPI)NonAf >90 (>60 ml/min/1.73 sqM) Glucose 108 H (74-99) mg/dL Calcium 9.2 (8.4-10.2) mg/dL Total Bilirubin 0.5 (0.2-1.3) mg/dL AST 36 (14-36) U/L ALT 31 (4-34) U/L Alkaline Phosphatase 109 (38-126) U/L Total Protein 7.7 (6.3-8.2) g/dL Albumin 4.4 (3.5-5.0) g/dL Blood Type Blood Type Recheck Bld Type Recheck Status Antibody Screen Spec Expiration Date Disposition Clinical Impression: Vaginal bleeding Disposition: HOME SELF-CARE Condition: Stable Instructions (If sedation given, give patient instructions): Dysmenorrhea (ED) Additional Instructions: Please follow-up with your SCHOOL PSYCHOLOGIST ASSISTANT on Saturday at your scheduled appointment at 10:00 AM. Return to the emergency department if symptoms return or if any new, worsening, or concerning symptoms arise. Is patient prescribed a controlled substance at d/c from ED?: No Referrals: Royal Dennis MD [Primary Care Provider] - 1-2 days Time of Disposition: 21:04
[2022-01-20 19:27] LABS: Basophils % (A) 0 %; Eosinophils # (A) 0.1 k/uL (0-0.7); Eosinophils % (A) 1 %; HCT 39.8 % (34.0-46.0); HGB 13.3 gm/dL (11.4-16.0); Lymphocytes # (A) 1.9 k/uL (1.0-4.8); Lymphocytes % (A) 36 %; MCH 30.1 pg (25.0-35.0); MCHC 33.4 g/dL (31.0-37.0); MCV 90.3 fL (80.0-100.0); Mean Platelet Volume 7.1; Monocytes # (A) 0.2 k/uL (0-1.0); Monocytes % (A) 4 %; Neutrophils % (A) 57 %; Platelet Count 194 k/uL (150-450); RBC 4.41 m/uL (3.80-5.40); RDW 13.2 % (11.5-15.5); WBC 5.2 k/uL (3.8-10.6)
[2022-01-20 19:32] LABS: INR 0.9 (<1.2); Partial Thromboplastin Time 26.1 sec (22.0-30.0); Prothrombin Time 9.9 sec (9.0-12.0)
[2022-01-20 19:33] LABS: ALT 31 U/L (4-34); AST 36 U/L (14-36); African American GFR (CKD) >90 (>60 ml/min/1.73 sqM); Albumin 4.4 g/dL (3.5-5.0); Alkaline Phosphatase 109 U/L (38-126); Anion Gap 8 mmol/L; Blood Urea Nitrogen 16 mg/dL (7-17); Calcium 9.2 mg/dL (8.4-10.2); Carbon Dioxide 26 mmol/L (22-30); Chloride 104 mmol/L (98-107); Glucose 108 mg/dL (74-99); Non-African American GFR(CKD) >90 (>60 ml/min/1.73 sqM); Potassium 3.6 mmol/L (3.5-5.1); Sodium 138 mmol/L (137-145); Total Bilirubin 0.5 mg/dL (0.2-1.3); Total Protein 7.7 g/dL (6.3-8.2)
[2022-01-20 20:19] VITALS: RESP 18
--- NOTE | 2022-01-20 20:19 | US ---
EXAMINATION TYPE: US transvaginal DATE OF EXAM: 01/20/2022 COMPARISON: NONE CLINICAL HISTORY: vaginal bleeding. 4 weeks , increase in bleeding to past 2 day s TECHNIQUE: Transvaginal ER exam Date of LMP: Unknown EXAM MEASUREMENTS: Uterus: 10.8 x 5.7 x 5.9 cm Endometrial Stripe: 2.7 cm Right Ovary: 2.5 x 1.9 x 1.6 cm Left Ovary: not seen 1. Uterus: enlarged uterus 2. Endometrium: thickened, heterogeneous, vascular 3. Right Ovary: wnl 4. Left Ovary: not seen Spectral, color and waveform doppler imaging shows good arterial and venous flow within the right o vary; there is no evidence for ovarian torsion within the right ovary. 5. Bilateral Adnexa: wnl 6. Posterior cul-de-sac: wnl IMPRESSION: There is endometrial complex thickening that measures up to 2.7 cm in thickness that could relate to some blood clot. Endometritis is possible. No adnexal mass.
[2022-01-20 21:28] VITALS: BP 127/69; PULSE 72
== END 2022-01-20 21:38 | disposition home or self-care (01) ==
LOC: EC 18:09
DX: N93.9 Abnormal uterine and vaginal bleeding, unspecified (principal); K21.9 Gastro-esophageal reflux disease without esophagitis; E07.9 Disorder of thyroid, unspecified; Z79.890 Hormone replacement therapy; Z79.899 Other long term (current) drug therapy
CPT/HCPCS: 36415; 76830; 80053; 85025; 85610; 85730; 86850; 86900; 86901; 93976; 96360; 96361; 99284

== ENCOUNTER 2022-01-23 05:55 | Day surgery (SDC) | payer OTHER ==
--- NOTE | 2022-01-22 10:50 | P.HPOB ---
History of Present Illness H&P Date: 01/22/22 Chief Complaint: Retained products of conception. This is a pleasant 31 yr old female status post on 12/24 for gestational hypertension. Delivery was complicated by membranous cord insertion and retained placenta that required manual extraction. She did not have any significant bleeding until this last Saturday, when she began bleeding heavy. Went to ER on Saturday and ultrasound shows endometrial thickening (2.7cm) with probable retained tissue. I have advised a suction D&C for further treatment Review of Systems Genitourinary: Reports abnormal vaginal bleeding Past Medical History Past Medical History: GERD/Reflux, Thyroid Disorder Additional Past Medical History / Comment(s): Thyroidectomy age 14. Induction x 2 for hypertension. History of Any Multi-Drug Resistant Organisms: None Reported Past Surgical History: No Surgical Hx Reported Additional Past Surgical History / Comment(s): thyroidectomy Past Anesthesia/Blood Transfusion Reactions: No Reported Reaction Past Psychological History: Anxiety, Depression Smoking Status: Never smoker Past Alcohol Use History: None Reported Past Drug Use History: None Reported - Past Family History Father Family Medical History: No Reported History Medications and Allergies Home Medications Medication Instructions Recorded Confirmed Type Omeprazole [PriLOSEC] 20 mg PO DAILY 10/29/18 01/20/22 History Pnv No.95/Ferrous Fum/Folic AC 1 tab PO DAILY 10/29/18 01/20/22 History [ Multivitamin Tablet] Levothyroxine Sodium [Synthroid] 137 mcg PO SUTUWETHFRSA 01/20/22 01/20/22 History Levothyroxine Sodium [Synthroid] 274 mcg PO MO 01/20/22 01/20/22 History Sertraline [Zoloft] 50 mg PO BID 01/20/22 01/20/22 History Allergies Allergy/AdvReac Type Severity Reaction Status Date / Time No Known Allergies Allergy Verified 01/20/22 20:23 Exam - OBG Physical Exam Abdomen: bowel sounds normal, no diffuse tenderness, no bruit present, no guarding noted, no hepatomegaly, no splenomegaly, no mass Vulva: both: normal Vagina: normal moisture, no discharge Cervix: no lesion, no discharge Results Transvaginal ultrasound shows endometrial thickening to 2.7cm Assessment and Plan Assessment: This is a pleasant 31 yr old female with late bleeding and ultrasound suggestive of retained products of conception. Plan is suction D&C for further treatment. I have discussed this surgery and risks: infection, bleeding, possible uterine perforation. All of her questions were answered and a written consent obtained. (1) Retained products of conception Status: Acute Code(s): TGI8536 - SNOMED Code(s): 820973300
[~2022-01-23 05:55] MED LIST: Pre Op ABX Message 1 EACH MISC MISCELLANE ONE
[2022-01-23] MEDS ORDERED: ONDANSETRON 4 MG/2 ML VIAL IVP ONE (06:01)
[2022-01-23] MEDS ORDERED: MIDAZOLAM 2 MG/2 ML VIAL IV PRN (06:01)
[2022-01-23] MEDS ORDERED: LIDOCAINE 1% (10MG/ML) FOR IV START INTRADERMA PRN (06:01)
[2022-01-23] MEDS ORDERED: DEXAMETHASONE SOD PHOSPHATE 4 MG/ML 1 ML VIAL IV ONE (06:01)
[2022-01-23] MEDS ORDERED: LACTATED RINGERS 1,000 ML IV SCH (06:01)
[2022-01-23] MEDS ORDERED: LACTATED RINGERS 1,000 ML IV ONE (06:25)
[2022-01-23] MEDS ORDERED: LIDOCAINE 1% INJ 10MG/ML (20 ML MDV) ONE (06:46)
[2022-01-23] MEDS ORDERED: fentaNYL (PF) 50 MCG/ML 2 ML AMP ONE (06:46)
[2022-01-23] MEDS ORDERED: MIDAZOLAM 2 MG/2 ML VIAL ONE (06:46)
[2022-01-23] MEDS ORDERED: PROPOFOL 10 MG/ML 20 ML VIAL IV ONE (06:46)
[2022-01-23] MEDS ORDERED: SUCCINYLCHOLINE CHLORIDE 100 MG/5 ML SYR IV ONE (06:46)
[2022-01-23] MEDS ORDERED: HYDROmorphone 0.5 MG/0.5 ML SYRINGE IVP PRN (07:00)
[2022-01-23] MEDS ORDERED: METOCLOPRAMIDE 5 MG/ML 2 ML VIAL IVP PRN (07:00)
--- NOTE | 2022-01-23 07:17 | P.OP ---
Date of Procedure: 01/23/22 Preoperative Diagnosis: retained products of conception Postoperative Diagnosis: Same Procedure(s) Performed: Suction D&C Anesthesia: MICHAEL Surgeon: Abdullahi Garcia Estimated Blood Loss (ml): 75 Urine output (ml): 50 Pathology: other (Products of conception) Condition: stable Disposition: PACU Indications for Procedure: Please see dictated H&P for intimate details of this patient's admission. In brief summary this is a pleasant 31-year-old 2 para 2 female status post vaginal delivery last month. Deliveries complicated by retained placenta which required manual removal. Patient been doing well over this weekend began having heavy bleeding and ultrasound showed what appears to be retained products of conception. Patient now presents for suction D&C for treatment. Patient does understand the surgery and risks and risks of infection, bleeding, possible uterine perforation. All the patient's questions are answered and a written consent is obtained. Operative Findings: This patient had a significant amount of degenerated products of conception Description of Procedure: This patient is taken to the operating room where she is laid in the supine position. She subsequently undergoes general endotracheal anesthesia without incident. With an adequate level of anesthesia she's placed in dorsal lithotomy position. She has a vaginal perineal prep and drape. Examination under ane sthesia shows a mid position uterus slightly enlarged. I first drain the bladder for 50 mL of clear urine. Weighted speculum was then placed in the posterior vagina and the anterior lip of the cervix was grabbed with an Allis clamp. Cervix is easily dilated to allow a 12 curved suction curette into the uterine cavity. Suction is applied and a generous amount of tissue is removed. All tubal passes are made until no further tissue was noted. With this done a gentle but thorough 4 quadrant curettage is done for no further tissue. Cavity does appear smooth at this time. A final pass of the suction curet is done and again no further tissue was noted. This point the procedure is ended. Allis clamp and weighted speculum removed. Patient is awakened from anesthesia and taken recovery room satisfactory condition.
[2022-01-23 07:27] VITALS: RESP 16; TEMP 97
[2022-01-23 08:16] VITALS: BP 114/76; PULSE 61
== END 2022-01-23 08:42 | disposition home or self-care (01) ==
LOC: OR 05:55
PROVIDERS: ATTEND Obstetrics & Gynecology
DX: O03.4 Incomplete spontaneous abortion without complication (principal); E07.9 Disorder of thyroid, unspecified; K21.9 Gastro-esophageal reflux disease without esophagitis
CPT/HCPCS: 59812; 88305; J2250; J1100; J2405; J2001; J3010; J0330; J2704

== ENCOUNTER 2022-01-30 14:47 | Observation (INO) | payer OTHER ==
[2022-01-30] MEDS: LACTATED RINGERS 1,000 ML IV SCH ×3 (15:05→17:05)
[2022-01-30 15:21] LABS: Basophils % (A) 1 %; Eosinophils # (A) 0.1 k/uL (0-0.7); Eosinophils % (A) 1 %; HCT 33.4 % (34.0-46.0); HGB 10.5 gm/dL (11.4-16.0); Hypochromasia Slight; Lymphocytes # (A) 1.7 k/uL (1.0-4.8); Lymphocytes % (A) 35 %; MCH 29.1 pg (25.0-35.0); MCHC 31.5 g/dL (31.0-37.0); MCV 92.6 fL (80.0-100.0); Monocytes # (A) 0.3 k/uL (0-1.0); Monocytes % (A) 5 %; Neutrophils # (A) 2.7 k/uL (1.3-7.7); Neutrophils % (A) 55 %; Platelet Count 203 k/uL (150-450); RDW 12.8 % (11.5-15.5); WBC 4.9 k/uL (3.8-10.6)
[2022-01-30 15:29] LABS: ALT 30 U/L (4-34); African American GFR (CKD) >90 (>60 ml/min/1.73 sqM); Albumin 4.4 g/dL (3.5-5.0); Anion Gap 7 mmol/L; Blood Urea Nitrogen 13 mg/dL (7-17); Calcium 8.9 mg/dL (8.4-10.2); Carbon Dioxide 24 mmol/L (22-30); Chloride 105 mmol/L (98-107); Glucose 91 mg/dL (74-99); Non-African American GFR(CKD) >90 (>60 ml/min/1.73 sqM); Sodium 136 mmol/L (137-145); Total Bilirubin 0.6 mg/dL (0.2-1.3); Total Protein 7.8 g/dL (6.3-8.2)
[2022-01-30 15:36] LABS: Potassium 5.2 mmol/L (3.5-5.1)
[2022-01-30 15:37] LABS: AST 47 U/L (14-36); Alkaline Phosphatase 107 U/L (38-126)
[2022-01-30] MEDS: CLINDAMYCIN 900 MG in DEXTROSE 5% IN WATER 50 ML IVPB SCH ×2 (16:00)
[2022-01-30] MEDS ORDERED: GENTAMICIN 0 MG in SODIUM CHLORIDE 0.9% 100 ML IVPB SCH (16:00)
[2022-01-30] MEDS: GENTAMICIN 320 MG in SODIUM CHLORIDE 0.9% 100 ML IVPB SCH (17:03)
[2022-01-30] MEDS ORDERED: IBUPROFEN 600 MG TAB PO PRN (18:13)
--- NOTE | 2022-01-30 18:13 | P.HPOB ---
History of Present Illness H&P Date: 01/30/22 Chief Complaint: Abdominal pain and fever. This patient is a pleasant 31-year-old 2 para 2 female who is status post vaginal delivery on December 24. Patient had gestational hypertension at that time had an uncomplicated delivery with the exception of retained placenta which required manual extraction. Patient did well however approximately 4 weeks later began having increased bleeding ultrasound showed what appeared to be retained products of conception. Patient subsequently underwent a suction D&C on January 23 for retained products. Patient states that she did well however on Saturday began having temperatures to 102 and lower abdominal pain. Patient did talk to my partner Dr. Balderrama on Saturday and was placed on oral clindamycin and doxycycline. She called my office this morning stating that her lower pelvic pain was getting worse and she still having low-grade temperatures. Patient was seen in the office and felt to have suprapubic tenderness therefore is admitted for diagnosis of endometritis and IV antibiotics. Review of Systems Constitutional: Reports as per HPI, Reports chills, Reports fever Genitourinary: Reports as per HPI Past Medical History Past Medical History: GERD/Reflux, Thyroid Disorder Additional Past Medical History / Comment(s): Thyroidectomy age 14. Induction x 2 for hypertension. History of Any Multi-Drug Resistant Organisms: None Reported Additional Past Surgical History / Comment(s): thyroidectomy; dilation and curettage on January 23 Past Anesthesia/Blood Transfusion Reactions: No Reported Reaction Smoking Status: Never smoker Past Alcohol Use History: None Reported Past Drug Use History: None Reported - Past Family History Father Family Medical History: No Reported History Medications and Allergies Home Medications Medication Instructions Recorded Confirmed Type Omeprazole [PriLOSEC] 20 mg PO QAM 10/29/18 01/30/22 History Pnv No.95/Ferrous Fum/Folic AC 1 tab PO DAILY 10/29/18 01/30/22 History [ Multivitamin Tablet] Levothyroxine Sodium [Synthroid] 137 mcg PO SUTUWETHFRSA 01/20/22 01/30/22 Histo ry Levothyroxine Sodium [Synthroid] 274 mcg PO MO 01/20/22 01/30/22 History Sertraline [Zoloft] 100 mg PO BID 01/20/22 01/30/22 History Ibuprofen [Motrin] 600 mg PO Q6HR PRN #30 tab 01/23/22 01/30/22 Rx Allergies Allergy/AdvReac Type Severity Reaction Status Date / Time No Known Allergies Allergy Verified 01/30/22 14:50 Exam Intake and Output 01/30/22 01/30/22 01/30/22 06:59 14:59 22:59 Other: Weight 79.379 kg - OBG Physical Exam Abdomen: Suprapubic tenderness to palpation Uterus: normal size Results Result Diagrams: 01/30/22 15:10 01/30/22 15:10 Abnormal Lab Results - Last 24 Hours (Table) 01/30/22 01/30/22 Range/Units 15:10 15:10 RBC 3.60 L (3.80-5.40) m/uL Hgb 10.5 L (11.4-16.0) gm/dL Hct 33.4 L (34.0-46.0) % Sodium 136 L (137-145) mmol/L Potassium 5.2 H (3.5-5.1) mmol/L AST 47 H (14-36) U/L Assessment and Plan Assessment: This is a pleasant 31-year-old 2 para 2 female who has elevated temperatures and suprapubic tenderness status post D&C for retained products on January 23. Patient has failed outpatient oral antibiotics and therefore is going to be admitted for IV antibiotics, serial CBC and close observation. (1) Endometritis following delivery Current Visit: Yes Status: Acute Code(s): O86.12 - ENDOMETRITIS FOLLOWING DELIVERY SNOMED Code(s): 192573849
[2022-01-30] MEDS ORDERED: ACETAMINOPHEN TAB 325 MG TAB PO PRN (18:14)
[2022-01-31] MEDS: CLINDAMYCIN 900 MG in DEXTROSE 5% IN WATER 50 ML IVPB SCH ×6 (00:10→14:56)
[2022-01-31] MEDS: LACTATED RINGERS 1,000 ML IV SCH (04:22)
--- NOTE | 2022-01-31 06:33 | P.PN ---
Progress Note - Text Progress Note Date: 01/31/22 Hospital day #2. Selene is resting without new complaints and states that her pain is much better. Vital signs are stable and she is afebrile. CBC yesterday was normal on repeat today is pending. Exam today shows her abdomen obese soft there is no rebound no guarding she is much less tender than yesterday. I discussed with her the treatment plan and she does wish to go home later today so I believe if she stays afebrile at 24 hours she can be discharged home on oral antibiotics later today. She did inquire about repeating her thyroid testing somewhat to do that with her CBC this morning. Plan is to continue IV antibiotics, check CBC, most likely discharge home on oral treatment plan later today
[2022-01-31 07:41] LABS: Basophils % (A) 0 %; Eosinophils % (A) 1 %; HCT 32.4 % (34.0-46.0); HGB 10.6 gm/dL (11.4-16.0); Hypochromasia Slight; Lymphocytes # (A) 1.3 k/uL (1.0-4.8); Lymphocytes % (A) 36 %; MCH 29.9 pg (25.0-35.0); MCHC 32.7 g/dL (31.0-37.0); MCV 91.4 fL (80.0-100.0); Mean Platelet Volume 7.4; Monocytes # (A) 0.2 k/uL (0-1.0); Monocytes % (A) 6 %; Neutrophils # (A) 1.9 k/uL (1.3-7.7); Neutrophils % (A) 53 %; Platelet Count 203 k/uL (150-450); RBC 3.54 m/uL (3.80-5.40); RDW 13.2 % (11.5-15.5); WBC 3.6 k/uL (3.8-10.6)
[2022-01-31 07:50] LABS: African American GFR (CKD) >90 (>60 ml/min/1.73 sqM); Non-African American GFR(CKD) 81 (>60 ml/min/1.73 sqM)
[2022-01-31 08:07] LABS: T4, Free (Free Thyroxine) 1.44 ng/dL (0.78-2.19)
[2022-01-31 08:59] VITALS: RESP 18
--- NOTE | 2022-01-31 14:12 | P.PN ---
Progress Note - Text Progress Note Date: 01/31/22 Local anesthetic feeling much better this afternoon. CBC was normal. Abdomen soft with no significant tenderness. Plan is to discharge home later today after her 4:00 antibiotic dose follow up with me next week. She'll continue oral antibiotics as taken previously
--- NOTE | 2022-01-31 14:16 | P.DS ---
Providers Date of admission: 01/30/22 14:47 Expected date of discharge: 01/31/22 Attending physician: Abdullahi Garcia Primary care physician: Stated None - Discharge Diagnosis(es) (1) Endometritis following delivery Current Visit: Yes Status: Acute Hospital Course: Please see dictated H&P for intimate details of this patient's admission. Brief summary this is a pleasant 31-year-old 2 para 2 female status post vaginal delivery last month who had retained products of conception and status post a D&C approximately 1 week ago. Patient began developing fevers and lower abdominal pain clinically consistent with endometritis. Patient failed outpatient oral therapy and therefore was admitted for IV antibiotics. Patient is admitted she started on clindamycin and gentamicin and within 12 24-hour she is feeling much better. Patient remained afebrile for over 24 hours. Patient's serial CBCs which were good. Patient's felt be stable for discharge home follow up with me in 1 week. Continue to take the oral antibiotics as previously prescribed. Patient Condition at Discharge: Good Plan - Discharge Summary New Discharge Prescriptions: No Action Omeprazole [PriLOSEC] 20 mg PO QAM Pnv No.95/Ferrous Fum/Folic AC [ Multivitamin Tablet] 1 tab PO DAILY Levothyroxine Sodium [Synthroid] 137 mcg PO SUTUWETHFRSA Levothyroxine Sodium [Synthroid] 274 mcg PO MO Ibuprofen [Motrin] 600 mg PO Q6HR PRN #30 tab PRN Reason: Pain Sertraline [Zoloft] 100 mg PO BID Discharge Medication List Omeprazole [PriLOSEC] 20 mg PO QAM 10/29/18 [History] Pnv No.95/Ferrous Fum/Folic AC [ Multivitamin Tablet] 1 tab PO DAILY 10/29/18 [History] Levothyroxine Sodium [Synthroid] 137 mcg PO SUTUWETHFRSA 01/20/22 [History] Levothyroxine Sodium [Synthroid] 274 mcg PO MO 01/20/22 [History] Sertraline [Zoloft] 100 mg PO BID 01/20/22 [History] Ibuprofen [Motrin] 600 mg PO Q6HR PRN #30 tab 01/23/22 [Rx] Follow up Appointment(s)/Referral(s): Abdullahi Garcia MD [STAFF PHYSICIAN] - 1 Week (Please follow-up as scheduled) Patient Instructions/Handouts: Endometritis (DC) Activity/Diet/Wound Care/Special Instructions: No intercourse or anything per vagina for 10 days. Please call if any fever excessive abdominal pain or excessive vaginal bleeding. Discharge Disposition: HOME SELF-CARE
[2022-01-31] MEDS: GENTAMICIN 320 MG in SODIUM CHLORIDE 0.9% 100 ML IVPB SCH (16:18)
[2022-01-31 18:29] VITALS: BP 123/73; PULSE 72; TEMP 98.4
== END 2022-01-31 18:00 | disposition home or self-care (01) ==
LOC: 4FBP 14:47 → INTOOBSV 14:47 → UNDODISIN 01-31 18:00
PROVIDERS: ADMIT Obstetrics & Gynecology; ATTEND Obstetrics & Gynecology
DX: O86.12 Endometritis following delivery (principal); O99.63 Diseases of the digestive system complicating the puerperium; K21.9 Gastro-esophageal reflux disease without esophagitis; O99.285 Endocrine, nutritional and metabolic diseases complicating the puerperium; E89.0 Postprocedural hypothyroidism; Z79.890 Hormone replacement therapy; Z79.899 Other long term (current) drug therapy
CPT/HCPCS: 96361 ×2; 96365; 96366 ×2; 96367; 84439; 80053; 84443; 82565; 83605; 85025 ×2; 80170; G0378 ×2; G0379; J1580 ×2